=== PATIENT | male | born 1965 ===

== ENCOUNTER 2021-10-22 06:51 | Inpatient (IN) | payer BC ==
[~2021-10-22] VITALS: Ht 177.8 cm; Wt 131.5 kg
[2021-10-22 08:00] VITALS: BP 120/86
[2021-10-22 08:15] VITALS: BP 166/88
[2021-10-22 08:30] VITALS: BP 166/88
[2021-10-22 11:56] VITALS: BP 143/89
[2021-10-22] MEDS ORDERED: DOCUSATE SODIUM 100 MG CAP PO PRN (15:30)
[2021-10-22] MEDS ORDERED: ALLOPURINOL300 MG PO (16:30)
[2021-10-22] MEDS ORDERED: FOLIC ACID0.4 MG PO (16:30)
[2021-10-22] MEDS ORDERED: AMBIEN10 MG PO (16:30)
[2021-10-22] MEDS ORDERED: IRBESARTAN300 MG PO (16:30)
[2021-10-22] MEDS ORDERED: METHOTREXATE2.5 MG PO (16:30)
[2021-10-22] MEDS ORDERED: CELEBREX200 MG PO (16:30)
[2021-10-22] MEDS ORDERED: IRBESARTAN 150 MG TAB PO ONE (16:45)
[2021-10-22] MEDS ORDERED: SODIUM CHLORIDE 0.9% 250ML 250 ML ONE (17:24)
[2021-10-22] MEDS ORDERED: PANTOPRAZOLE SOD 40 MG TABEC PO ONE (17:30)
[2021-10-22] MEDS: SODIUM CHLORIDE 0.9% 1000ML 1,000 ML IV SCH (17:31)
[2021-10-22] MEDS: ALLOPURINOL 300 MG TAB PO SCH (17:32)
[2021-10-22] MEDS: CEFEPIME 2 GM in SODIUM CHLORIDE 0.9% 100 ML IV SCH (17:39)
[2021-10-22 17:45] LABS: BASOPHILS % 0.4 % (0.0-1.0); EOSINOPHILS # (AUTO) 0.2 (0.0-0.4); EOSINOPHILS % 2.1 % (0.0-6.0); HEMATOCRIT 41.6 % (38.2-49.6); HEMOGLOBIN 14.5 g/dL (14.0-18.0); LYMPHOCYTES # (AUTO) 2.4 (1.0-3.2); LYMPHOCYTES % 24.4 % (18.0-39.1); MEAN CORPUSCULAR HEMOGLOBIN 34.8 pg (28-32); MEAN CORPUSCULAR HGB CONC 34.9 g/dL (31-35); MEAN CORPUSCULAR VOLUME 99.8 fL (81-99); MONOCYTES # (AUTO) 1.3 (0.2-0.8); MONOCYTES % 12.7 % (4.4-11.3); PLATELET COUNT 156 x10e3/uL (140-360); RED BLOOD COUNT 4.17 x10e6/uL (4.3-5.7); RED CELL DISTRIBUTION WIDTH 13.1 % (11.7-14.4)
[2021-10-22 17:51] LABS: ALBUMIN 3.4 g/dL (3.5-5.0); ALBUMIN/GLOBULIN RATIO 0.9 (0.8-2.0); CALCIUM 8.9 mg/dL (8.4-10.2); CREATININE, SERUM 0.85 mg/dL (0.72-1.25)
[2021-10-22] MEDS: Vancomycin IV 1 GM in SODIUM CHLORIDE 0.9% 250ML 250 ML IV SCH (18:30)
[2021-10-22 20:00] VITALS: BP 158/84
[2021-10-22] MEDS: MELATONIN 3 MG TAB PO SCH (20:22)
[2021-10-22 21:48] VITALS: BP 158/84
[2021-10-23] VITALS (8 sets, daily range): BP systolic 128–148; BP diastolic 74–89
[2021-10-23] MEDS: SODIUM CHLORIDE 0.9% 1000ML 1,000 ML IV SCH ×2 (03:28→13:30)
[2021-10-23] MEDS: ZOLPIDEM TARTRATE 5 MG TAB PO PRN (04:29)
[2021-10-23] MEDS: Vancomycin IV 1 GM in SODIUM CHLORIDE 0.9% 250ML 250 ML IV SCH ×2 (05:10→18:25)
[2021-10-23] MEDS ORDERED: ACETAMINOPHEN 325 MG TAB PO PRN (06:45)
[2021-10-23] MEDS: PANTOPRAZOLE SOD 40 MG TABEC PO SCH (07:53)
[2021-10-23] MEDS: CEFEPIME 2 GM in SODIUM CHLORIDE 0.9% 100 ML IV SCH ×2 (08:32→20:51)
[2021-10-23] MEDS: IRBESARTAN 150 MG TAB PO SCH (08:32)
[2021-10-23] MEDS: FOLIC ACID 1 MG TAB PO SCH (08:32)
[2021-10-23 08:49] LABS: BASOPHILS % 0.5 % (0.0-1.0); EOSINOPHILS # (AUTO) 0.2 (0.0-0.4); EOSINOPHILS % 3.1 % (0.0-6.0); HEMATOCRIT 40.9 % (38.2-49.6); HEMOGLOBIN 13.9 g/dL (14.0-18.0); LYMPHOCYTES # (AUTO) 2.2 (1.0-3.2); LYMPHOCYTES % 29.6 % (18.0-39.1); MEAN CORPUSCULAR HEMOGLOBIN 34.6 pg (28-32); MEAN CORPUSCULAR VOLUME 101.7 fL (81-99); MONOCYTES # (AUTO) 0.8 (0.2-0.8); MONOCYTES % 10.4 % (4.4-11.3); NEUTROPHILS # (AUTO) 4.2 (2.1-6.9); NEUTROPHILS % 56.1 % (38.7-80.0); PLATELET COUNT 156 x10e3/uL (140-360); RED BLOOD COUNT 4.02 x10e6/uL (4.3-5.7); RED CELL DISTRIBUTION WIDTH 13.2 % (11.7-14.4)
[2021-10-23 09:15] LABS: ANION GAP 13.3 mmol/L (8-16); CALCIUM 8.9 mg/dL (8.4-10.2); CREATININE, SERUM 0.76 mg/dL (0.72-1.25); POTASSIUM 4.3 mmol/L (3.5-5.1)
[2021-10-23] MEDS: NYSTATIN 100,000 UNITS/GM CRM 30GM TUBE TOP SCH ×2 (10:00→17:00)
[2021-10-23] MEDS: MELATONIN 3 MG TAB PO SCH (20:51)
[2021-10-24] VITALS (8 sets, daily range): BP systolic 125–192; BP diastolic 68–97
[2021-10-24] MEDS: SODIUM CHLORIDE 0.9% 1000ML 1,000 ML IV SCH ×3 (01:02→20:02)
[2021-10-24 05:58] LABS: BASOPHILS % 0.4 % (0.0-1.0); EOSINOPHILS # (AUTO) 0.3 (0.0-0.4); EOSINOPHILS % 2.7 % (0.0-6.0); HEMATOCRIT 42.7 % (38.2-49.6); HEMOGLOBIN 14.2 g/dL (14.0-18.0); LYMPHOCYTES % 32.9 % (18.0-39.1); MEAN CORPUSCULAR HEMOGLOBIN 34.2 pg (28-32); MEAN CORPUSCULAR HGB CONC 33.3 g/dL (31-35); MEAN CORPUSCULAR VOLUME 102.9 fL (81-99); MONOCYTES # (AUTO) 0.9 (0.2-0.8); MONOCYTES % 9.8 % (4.4-11.3); NEUTROPHILS # (AUTO) 4.9 (2.1-6.9); NEUTROPHILS % 53.9 % (38.7-80.0); PLATELET COUNT 171 x10e3/uL (140-360); RED BLOOD COUNT 4.15 x10e6/uL (4.3-5.7); RED CELL DISTRIBUTION WIDTH 13.1 % (11.7-14.4)
[2021-10-24] MEDS: Vancomycin IV 1 GM in SODIUM CHLORIDE 0.9% 250ML 250 ML IV SCH ×2 (06:00→19:58)
[2021-10-24 06:16] LABS: ANION GAP 12.8 mmol/L (8-16); CREATININE, SERUM 0.86 mg/dL (0.72-1.25); POTASSIUM 3.8 mmol/L (3.5-5.1)
[2021-10-24] MEDS: PANTOPRAZOLE SOD 40 MG TABEC PO SCH (10:41)
[2021-10-24] MEDS: IRBESARTAN 150 MG TAB PO SCH (10:42)
[2021-10-24] MEDS: FOLIC ACID 1 MG TAB PO SCH (10:42)
[2021-10-24] MEDS: NYSTATIN 100,000 UNITS/GM CRM 30GM TUBE TOP SCH ×2 (10:42→17:00)
[2021-10-24] MEDS: ALLOPURINOL 300 MG TAB PO SCH (10:42)
[2021-10-24] MEDS ORDERED: LIDOCAINE HCL 2% LOCAL 20 ML VIAL INJ STA (11:25)
[2021-10-24] MEDS: HYDROCODONE/APAP 7.5MG-325MG 1 EA TAB PO PRN ×2 (15:24→22:27)
[2021-10-24] MEDS: MELATONIN 3 MG TAB PO SCH (21:00)
[2021-10-24] MEDS: ZOLPIDEM TARTRATE 5 MG TAB PO PRN (22:27)
[2021-10-24] MEDS: HYDRALAZINE HCL 20 MG/ML VIAL IV PRN (23:29)
[2021-10-25] VITALS (7 sets, daily range): BP systolic 138–183; BP diastolic 73–94
[2021-10-25] MEDS: HYDROCODONE/APAP 7.5MG-325MG 1 EA TAB PO PRN ×2 (04:32→11:30)
[2021-10-25] MEDS: HYDRALAZINE HCL 20 MG/ML VIAL IV PRN (04:33)
[2021-10-25] MEDS: Vancomycin IV 1 GM in SODIUM CHLORIDE 0.9% 250ML 250 ML IV SCH ×2 (05:04→18:10)
[2021-10-25] MEDS: SODIUM CHLORIDE 0.9% 1000ML 1,000 ML IV SCH ×2 (05:30→16:30)
[2021-10-25 05:57] LABS: BASOPHILS % 0.2 % (0.0-1.0); EOSINOPHILS % 0.2 % (0.0-6.0); HEMATOCRIT 44.6 % (38.2-49.6); LYMPHOCYTES # (AUTO) 1.3 (1.0-3.2); LYMPHOCYTES % 7.9 % (18.0-39.1); MEAN CORPUSCULAR HEMOGLOBIN 33.8 pg (28-32); MEAN CORPUSCULAR HGB CONC 33.6 g/dL (31-35); MEAN CORPUSCULAR VOLUME 100.5 fL (81-99); MONOCYTES # (AUTO) 1.4 (0.2-0.8); MONOCYTES % 8.5 % (4.4-11.3); NEUTROPHILS # (AUTO) 13.5 (2.1-6.9); NEUTROPHILS % 82.5 % (38.7-80.0); PLATELET COUNT 183 x10e3/uL (140-360); RED BLOOD COUNT 4.44 x10e6/uL (4.3-5.7); RED CELL DISTRIBUTION WIDTH 12.9 % (11.7-14.4)
[2021-10-25 06:31] LABS: ANION GAP 14.7 mmol/L (8-16); CALCIUM 8.7 mg/dL (8.4-10.2); CREATININE, SERUM 0.82 mg/dL (0.72-1.25); MAGNESIUM 1.8 MG/DL (1.3-2.1); PHOSPHORUS 2.4 MG/DL (2.3-4.7); POTASSIUM 3.7 mmol/L (3.5-5.1)
[2021-10-25] MEDS ORDERED: IRBESARTAN 150 MG TAB PO SCH (07:45)
[2021-10-25] MEDS ORDERED: METOPROLOL TARTRATE INJ 1 MG/ML VIAL IV PRN (07:45)
[2021-10-25] MEDS: PANTOPRAZOLE SOD 40 MG TABEC PO SCH (08:00)
[2021-10-25] MEDS: NYSTATIN 100,000 UNITS/GM CRM 30GM TUBE TOP SCH ×2 (09:45→17:00)
[2021-10-25] MEDS: ALLOPURINOL 300 MG TAB PO SCH (09:45)
[2021-10-25] MEDS: IRBESARTAN 150 MG TAB PO SCH (09:45)
[2021-10-25] MEDS: FOLIC ACID 1 MG TAB PO SCH (09:45)
[2021-10-25] MEDS ORDERED: ONDANSETRON HCL INJ 2MG/ML 2ML 2 MG/ML VIAL IV PRN (12:15)
[2021-10-25] MEDS: Clindamycin INJ 300 MG/50 ML 50 ML IV SCH (16:30)
[2021-10-25] MEDS: MELATONIN 3 MG TAB PO SCH (21:00)
[2021-10-25] MEDS: ZOLPIDEM TARTRATE 5 MG TAB PO PRN (21:31)
[2021-10-26] VITALS (8 sets, daily range): BP systolic 122–178; BP diastolic 67–85
[2021-10-26] MEDS: Clindamycin INJ 300 MG/50 ML 50 ML IV SCH ×4 (00:01→23:54)
[2021-10-26] MEDS: HYDROCODONE/APAP 7.5MG-325MG 1 EA TAB PO PRN ×2 (00:02→08:50)
[2021-10-26 05:51] LABS: BASOPHILS % 0.3 % (0.0-1.0); EOSINOPHILS # (AUTO) 0.2 (0.0-0.4); EOSINOPHILS % 1.1 % (0.0-6.0); HEMATOCRIT 39.6 % (38.2-49.6); HEMOGLOBIN 13.2 g/dL (14.0-18.0); LYMPHOCYTES # (AUTO) 2.2 (1.0-3.2); LYMPHOCYTES % 16.1 % (18.0-39.1); MEAN CORPUSCULAR HEMOGLOBIN 34.3 pg (28-32); MEAN CORPUSCULAR HGB CONC 33.3 g/dL (31-35); MEAN CORPUSCULAR VOLUME 102.9 fL (81-99); MONOCYTES # (AUTO) 1.7 (0.2-0.8); MONOCYTES % 12.6 % (4.4-11.3); NEUTROPHILS # (AUTO) 9.3 (2.1-6.9); NEUTROPHILS % 69.5 % (38.7-80.0); PLATELET COUNT 156 x10e3/uL (140-360); RED BLOOD COUNT 3.85 x10e6/uL (4.3-5.7); RED CELL DISTRIBUTION WIDTH 13.5 % (11.7-14.4)
[2021-10-26] MEDS ORDERED: IOPAMIDOL 370 MG/ML 100 ML INFUS..BTL INJ ONE (06:05)
[2021-10-26] MEDS ORDERED: SODIUM CHLORIDE 0.9% 250ML 250 ML ONE (06:40)
[2021-10-26] MEDS: Vancomycin IV 1 GM in SODIUM CHLORIDE 0.9% 250ML 250 ML IV SCH ×2 (06:41→17:10)
[2021-10-26] MEDS: PANTOPRAZOLE SOD 40 MG TABEC PO SCH (07:50)
[2021-10-26] MEDS: NYSTATIN 100,000 UNITS/GM CRM 30GM TUBE TOP SCH ×2 (08:55→17:10)
[2021-10-26] MEDS: ALLOPURINOL 300 MG TAB PO SCH (08:55)
[2021-10-26] MEDS: FOLIC ACID 1 MG TAB PO SCH (08:55)
[2021-10-26] MEDS: IRBESARTAN 150 MG TAB PO SCH (08:55)
[2021-10-26] MEDS: ZOLPIDEM TARTRATE 5 MG TAB PO PRN (20:40)
[2021-10-26] MEDS: MELATONIN 3 MG TAB PO SCH (20:40)
[2021-10-27 01:44] VITALS: BP 140/87
[2021-10-27 05:08] VITALS: BP 123/74
[2021-10-27] MEDS: Vancomycin IV 1 GM in SODIUM CHLORIDE 0.9% 250ML 250 ML IV SCH (05:19)
[2021-10-27 06:21] LABS: BASOPHILS # (AUTO) 0.1 (0.0-0.1); BASOPHILS % 0.5 % (0.0-1.0); EOSINOPHILS # (AUTO) 0.3 (0.0-0.4); EOSINOPHILS % 2.6 % (0.0-6.0); HEMATOCRIT 38.9 % (38.2-49.6); HEMOGLOBIN 12.9 g/dL (14.0-18.0); LYMPHOCYTES # (AUTO) 1.9 (1.0-3.2); LYMPHOCYTES % 18.9 % (18.0-39.1); MEAN CORPUSCULAR HGB CONC 33.2 g/dL (31-35); MEAN CORPUSCULAR VOLUME 102.6 fL (81-99); MONOCYTES # (AUTO) 1.4 (0.2-0.8); MONOCYTES % 13.9 % (4.4-11.3); NEUTROPHILS # (AUTO) 6.3 (2.1-6.9); NEUTROPHILS % 63.6 % (38.7-80.0); PLATELET COUNT 165 x10e3/uL (140-360); RED BLOOD COUNT 3.79 x10e6/uL (4.3-5.7); RED CELL DISTRIBUTION WIDTH 13.2 % (11.7-14.4)
[2021-10-27 07:04] LABS: ALBUMIN 3.1 g/dL (3.5-5.0); ALBUMIN/GLOBULIN RATIO 0.8 (0.8-2.0); ANION GAP 15.7 mmol/L (8-16); CALCIUM 8.5 mg/dL (8.4-10.2); CREATININE, SERUM 0.87 mg/dL (0.72-1.25); POTASSIUM 3.7 mmol/L (3.5-5.1)
[2021-10-27 07:39] VITALS: BP 119/69
[2021-10-27 09:31] VITALS: BP 119/69
[2021-10-27] MEDS: PANTOPRAZOLE SOD 40 MG TABEC PO SCH (09:33)
[2021-10-27] MEDS: FOLIC ACID 1 MG TAB PO SCH (09:34)
[2021-10-27] MEDS: ALLOPURINOL 300 MG TAB PO SCH (09:34)
[2021-10-27] MEDS: Clindamycin INJ 300 MG/50 ML 50 ML IV SCH (09:34)
[2021-10-27] MEDS: NYSTATIN 100,000 UNITS/GM CRM 30GM TUBE TOP SCH (09:43)
[2021-10-27 11:31] VITALS: BP 130/72
[2021-10-27] MEDS ORDERED: PROTONIX40 MG/ML PO (12:33)
[2021-10-27] MEDS ORDERED: MELATONIN3 MG PO (12:33)
[2021-10-27] MEDS ORDERED: HYDROCODON-ACE1 EA12 PO (12:33)
[2021-10-27] MEDS ORDERED: ACETAMINOPHEN325 M1 PO (12:33)
[2021-10-27] MEDS ORDERED: NYSTATIN15 GM TOP (12:33)
[2021-10-27] MEDS ORDERED: ZYVOX600 MG PO (12:33)
[2021-10-27] MEDS ORDERED: Docusate Sodium PO (12:33)
[2021-10-27] MEDS ORDERED: ONDANSETRON HCL 4 MG ORAL DISINTEGRATING TAB PO PRN (13:45)
[2021-10-27] MEDS ORDERED: CLINDAMYCIN HCL 150 MG CAP PO SCH (16:00)
== END 2021-10-27 13:28 | disposition home or self-care (01) | DRG 603 ==
LOC: MED/SURG3 07:19
PROVIDERS: ADMIT Internal Medicine; ATTEND Internal Medicine
PROC: 0J9C0ZZ Drainage of Pelvic Region Subcutaneous Tissue and Fascia, Open Approach (ICD-10-PCS; principal; 2021-10-24)
DX: L03.314 Cellulitis of groin (principal); Z16.24 Resistance to multiple antibiotics; Z68.41 Body mass index [BMI] 40.0-44.9, adult; B95.62 Methicillin resistant Staphylococcus aureus infection as the cause of diseases classified elsewhere; M08.00 Unspecified juvenile rheumatoid arthritis of unspecified site; M10.9 Gout, unspecified; E66.01 Morbid (severe) obesity due to excess calories; I10 Essential (primary) hypertension; Z20.822 Contact with and (suspected) exposure to COVID-19
CPT/HCPCS: 36415; 72193; 80048; 80053; 80202; 83735; 84100; 85025; 87040; 87071; 87186; 87205; 94799; 96361; J0360; J0692; J2001; J3370; J7030; J7050; Q9967